=== PATIENT | female | born 1960 | race Hispanic/Latino ===

== ENCOUNTER 2019-07-21 10:50 | Day surgery (SDC) | payer OTHER ==
[~2019-07-21] VITALS: Ht 157.5 cm; Wt 80.7 kg
[2019-07-21 11:57] VITALS: BP 131/65
[2019-07-21] MEDS ORDERED: ISOS30TA6 PO (12:24)
[2019-07-21] MEDS ORDERED: OMEG-148 PO (12:24)
[2019-07-21] MEDS ORDERED: ASPI-555 PO (12:24)
[2019-07-21] MEDS ORDERED: ERGO500014 PO (12:24)
[2019-07-21] MEDS ORDERED: NITR0.4T50 SL (12:24)
[2019-07-21] MEDS ORDERED: ATOR-2 PO (12:24)
[2019-07-21] MEDS ORDERED: METO2.5T2 PO (12:24)
[2019-07-21] MEDS ORDERED: METO50TA18 PO (12:24)
[2019-07-21] MEDS ORDERED: AMLO10TA7 PO (12:24)
[2019-07-21] MEDS ORDERED: FURO20TA4 PO (12:24)
[2019-07-21] MEDS ORDERED: INSU100I35 SQ ×2 (12:24)
[2019-07-21] MEDS ORDERED: CLOP75TA32 PO (12:24)
[2019-07-21] MEDS ORDERED: SODIUM CHLORIDE 0.9% 1000ML 1,000 ML IV ONE (12:26)
[2019-07-21] MEDS ORDERED: PROPOFOL 10 MG/ML 20ML VIAL IV ONE ×2 (12:39)
[2019-07-21 12:42] VITALS: BP 110/51
[2019-07-21 12:47] VITALS: BP 126/68
[2019-07-21 12:52] VITALS: BP 132/76
[2019-07-21 12:57] VITALS: BP 133/73
[2019-07-21 13:02] VITALS: BP 137/72
--- NOTE | 2019-07-21 14:35 | NUR ---
PLAVIX PT/DAUGHTER INSTRUCTED TO RESUME PLAVIX IN 72 HOURS. VERBALIZED UNDERSTANDING.
== END 2019-07-21 13:17 | disposition home or self-care (01) ==
LOC: DAH 10:50
PROVIDERS: ATTEND Internal Medicine
DX: R19.5 Other fecal abnormalities (principal); K59.04 Chronic idiopathic constipation; D12.2 Benign neoplasm of ascending colon; D12.3 Benign neoplasm of transverse colon; K57.30 Diverticulosis of large intestine without perforation or abscess without bleeding; K64.0 First degree hemorrhoids; I10 Essential (primary) hypertension; E11.9 Type 2 diabetes mellitus without complications; I25.10 Atherosclerotic heart disease of native coronary artery without angina pectoris; Z88.1 Allergy status to other antibiotic agents; Z86.73 Personal history of transient ischemic attack (TIA), and cerebral infarction without residual deficits; Z98.890 Other specified postprocedural states; Z79.82 Long term (current) use of aspirin; Z86.010 Personal history of colon polyps; Z79.899 Other long term (current) drug therapy; Z79.4 Long term (current) use of insulin; Z82.49 Family history of ischemic heart disease and other diseases of the circulatory system; Z83.3 Family history of diabetes mellitus; Z82.3 Family history of stroke
CPT/HCPCS: 45380; 45385; 82948 ×2; 88305; A4215; A4221; A4222; A4223; A4606; A4615; A4663; J2704 ×2; J7030

== ENCOUNTER 2020-09-30 11:21 | Inpatient (IN) | payer OTHER ==
[~2020-09-30] VITALS: Ht 165.1 cm; Wt 75.5 kg
[~2020-09-30 11:21] MED LIST: AMLO-258 PO; ASPI-556 PO; ATOR-2 PO; CLOP75TA32 PO; ERGO500014 PO; FURO20TA4 PO; INSU100I35 SQ; ISOS30TA92 PO; METO2.5T2 PO; METO50TA18 PO; NITR0.4T50 SL; OMEG-148 PO
[2020-09-30] MEDS ORDERED: ACETAMINOPHEN 325 MG TAB PO PRN (11:45)
[2020-09-30] MEDS ORDERED: ONDANSETRON 4MG TABLET PO PRN (11:45)
[2020-09-30] MEDS: ZOSYN 3.375GM+NS 50ML 50 ML IV SCH ×2 (11:45→19:45)
[2020-09-30 11:58] LABS: BASOPHILS % (AUTO) 0.4 % (0.0-5.0); EOSINOPHILS % (AUTO) 2.4 % (0.0-8.0); HEMATOCRIT 33.3 % (36-48); LYMPHOCYTES % (AUTO) 17.1 % (21.0-51.0); MEAN CORPUSCULAR HEMOGLOBIN 29.6 pg (27.0-33.0); MEAN CORPUSCULAR HGB CONC 33.6 g/dL (32.0-36.0); MEAN CORPUSCULAR VOLUME 88.1 fL (79-99); MONOCYTES % (AUTO) 6.7 % (3.0-13.0); PLATELET COUNT (AUTO) 230 K/uL (130-400); RED BLOOD CELL COUNT(AUTO) 3.78 MIL/uL (4.00-5.50); RED CELL DISTRIBUTION WIDTH 13.8 % (11.0-15.5); WHITE BLOOD COUNT (AUTO) 8.3 K/uL (4.8-10.8)
[2020-09-30] MEDS: IPRATROPIUM/ALBUTEROL SULFATE 3 ML SOLUTION IH SCH ×2 (12:00→18:00)
[2020-09-30] MEDS ORDERED: IPRATROPIUM 0.5 MG/2.5 ML INH IH SCH (12:00)
[2020-09-30] MEDS ORDERED: GLUCAGON 1MG KIT 1 MG ML IM PRN (12:15)
[2020-09-30] MEDS ORDERED: DEXTROSE 50%-WATER 50 ML DISP.SYRIN IV PRN (12:15)
[2020-09-30 12:16] LABS: BILIRUBIN,TOTAL 0.5 mg/dL (0.2-1.0); POTASSIUM 4.3 mmol/L (3.5-5.1); TOTAL PROTEIN, SERUM 7.5 g/dL (6.0-8.3)
[2020-09-30 12:55] LABS: HEMOGLOBIN A1C 8.5 % (4.0-6.0)
[2020-09-30] MEDS ORDERED: ZOSYN 3.375GM+NS 50ML 50 ML IV ONE (13:33)
[2020-09-30] MEDS: CEFEPIME HCL 2 GM VIAL IVP SCH (14:15)
[2020-09-30] MEDS: DOXYCYCLINE 100MG+NS 250ML 250 ML IV SCH (14:15)
[2020-09-30 15:47] LABS: INR 1.07 (0.85-1.15); PROTHROMBIN TIME 11.4 SEC (9.6-11.6)
[2020-09-30] MEDS ORDERED: CEFEPIME HCL 2 GM VIAL ONE (16:23)
[2020-09-30] MEDS: INSULIN HUMULIN R 100 UNIT/ML 3ML SQ SCH ×2 (16:30→21:00)
[2020-09-30] MEDS ORDERED: DOXYCYCLINE 100MG+NS 250ML 250 ML IV ONE (17:05)
[2020-09-30] MEDS: BUDESONIDE 0.5 MG/2 ML INH IH SCH (18:00)
[2020-09-30] MEDS: ALBUTEROL INHALER 90MCG/INH IH SCH (18:00)
[2020-09-30] MEDS ORDERED: INSULIN HUMULIN R 100 UNIT/ML 3ML ONE (21:19)
[2020-10-01] MEDS: CEFEPIME HCL 2 GM VIAL IVP SCH ×2 (02:15→14:37)
[2020-10-01] MEDS: DOXYCYCLINE 100MG+NS 250ML 250 ML IV SCH ×2 (02:15→14:37)
[2020-10-01] MEDS: ZOSYN 3.375GM+NS 50ML 50 ML IV SCH ×2 (03:45→11:04)
[2020-10-01] MEDS ORDERED: CEFEPIME HCL 2 GM VIAL ONE (04:14)
[2020-10-01 04:45] LABS: BASOPHILS % (AUTO) 0.7 % (0.0-5.0); EOSINOPHILS % (AUTO) 2.4 % (0.0-8.0); HEMATOCRIT 33.9 % (36-48); LYMPHOCYTES % (AUTO) 15.5 % (21.0-51.0); MEAN CORPUSCULAR HEMOGLOBIN 29.6 pg (27.0-33.0); MEAN CORPUSCULAR VOLUME 89.4 fL (79-99); NEUTROPHILS % (AUTO) 73.2 % (40.0-77.0); PLATELET COUNT (AUTO) 197 K/uL (130-400); RED BLOOD CELL COUNT(AUTO) 3.79 MIL/uL (4.00-5.50); WHITE BLOOD COUNT (AUTO) 8.6 K/uL (4.8-10.8)
[2020-10-01] MEDS ORDERED: DOXYCYCLINE 100MG+NS 250ML 250 ML IV ONE (04:47)
[2020-10-01 04:57] LABS: CREATININE 3.4 mg/dL (0.5-1.5); MAGNESIUM 2.3 mg/dL (1.80-2.40); PHOSPHORUS 4.8 mg/dL (2.5-4.9); POTASSIUM 4.3 mmol/L (3.5-5.1); URIC ACID 12.1 mg/dL (2.6-7.2)
[2020-10-01 05:31] LABS: INR 1.09 (0.85-1.15); PROTHROMBIN TIME 11.6 SEC (9.6-11.6)
[2020-10-01 05:32] LABS: PARTIAL THROMBOPLASTIN TIME 23.1 SEC (26.3-35.5)
[2020-10-01] MEDS: BUDESONIDE 0.5 MG/2 ML INH IH SCH ×2 (06:00→18:00)
[2020-10-01] MEDS: ALBUTEROL INHALER 90MCG/INH IH SCH ×4 (06:00→17:22)
[2020-10-01] MEDS: IPRATROPIUM/ALBUTEROL SULFATE 3 ML SOLUTION IH SCH ×4 (06:00→18:00)
[2020-10-01] MEDS: INSULIN HUMULIN R 100 UNIT/ML 3ML SQ SCH ×4 (07:30→21:36)
[2020-10-01 08:45] VITALS: BP 109/55
[2020-10-01] MEDS: Vitamin B Complex/Vit C/Folic Acid PO SCH (10:18)
[2020-10-01] MEDS: PANTOPRAZOLE 40 MG TAB DR PO SCH (10:19)
[2020-10-01 11:52] VITALS: BP 105/58
[2020-10-01 16:18] VITALS: BP 117/71
[2020-10-01 16:59] LABS: TRIGLYCERIDES,BODY FLUID < 15 mg/dL
[2020-10-01 17:47] LABS: APPEARANCE BODY FLUID CLEAR (CLEAR); COLOR,BODY FLUID YELLOW (LT YELLOW); SPECIMENTYPE,BODY FLUID PLEURAL; TOTAL VOLUME,BODY FLUID 570 mL
[2020-10-01 17:48] LABS: BODY FLUID RBC 37 /cu. mm.; BODY FLUID WBC 20 /cu. mm.
[2020-10-01 18:03] LABS: BF EOSINOPHIL 1 %; BF LYMPHOCYTE 18 %; BF MESOTHELIAL 69 %; BF MONOCYTE 2 %
[2020-10-01 19:30] VITALS: BP 129/63
[2020-10-02] VITALS (7 sets, daily range): BP systolic 118–134; BP diastolic 67–75
[2020-10-02] MEDS: ALBUTEROL INHALER 90MCG/INH IH SCH ×4 (00:08→20:42)
[2020-10-02] MEDS: DOXYCYCLINE 100MG+NS 250ML 250 ML IV SCH ×2 (01:43→15:30)
[2020-10-02] MEDS: CEFEPIME HCL 2 GM VIAL IVP SCH ×2 (01:43→15:30)
[2020-10-02 05:33] LABS: BASOPHILS % (AUTO) 0.4 % (0.0-5.0); EOSINOPHILS % (AUTO) 1.6 % (0.0-8.0); HEMATOCRIT 36.9 % (36-48); LYMPHOCYTES % (AUTO) 10.5 % (21.0-51.0); MEAN CORPUSCULAR HEMOGLOBIN 28.9 pg (27.0-33.0); MEAN CORPUSCULAR VOLUME 90.4 fL (79-99); MONOCYTES % (AUTO) 5.5 % (3.0-13.0); NEUTROPHILS % (AUTO) 81.6 % (40.0-77.0); PLATELET COUNT (AUTO) 213 K/uL (130-400); RED BLOOD CELL COUNT(AUTO) 4.08 MIL/uL (4.00-5.50); RED CELL DISTRIBUTION WIDTH 13.8 % (11.0-15.5); WHITE BLOOD COUNT (AUTO) 11.4 K/uL (4.8-10.8)
[2020-10-02] MEDS: BUDESONIDE 0.5 MG/2 ML INH IH SCH ×2 (06:00→18:00)
[2020-10-02] MEDS: IPRATROPIUM/ALBUTEROL SULFATE 3 ML SOLUTION IH SCH ×4 (06:00→18:00)
[2020-10-02 06:02] LABS: ALBUMIN 2.9 g/dL (3.5-5.0); BILIRUBIN,TOTAL 0.5 mg/dL (0.2-1.0); CREATININE 3.4 mg/dL (0.5-1.5); MAGNESIUM 2.1 mg/dL (1.80-2.40); PHOSPHORUS 3.6 mg/dL (2.5-4.9); POTASSIUM 3.8 mmol/L (3.5-5.1); TOTAL PROTEIN, SERUM 7.4 g/dL (6.0-8.3)
[2020-10-02] MEDS: INSULIN HUMULIN R 100 UNIT/ML 3ML SQ SCH ×4 (06:42→20:36)
[2020-10-02] MEDS: Vitamin B Complex/Vit C/Folic Acid PO SCH (08:59)
[2020-10-02] MEDS: PANTOPRAZOLE 40 MG TAB DR PO SCH (08:59)
[2020-10-02 10:13] LABS: APPEARANCE,URINE Clear (CLEAR); BILIRUBIN,URINE Negative (NEGATIVE); COLOR,URINE Yellow (YELLOW); GLUCOSE, URINE (UA) TRACE mg/dL (NEGATIVE); KETONES,URINE Negative (NEGATIVE); LEUKOCYTE ESTERASE ,URINE Negative (NEGATIVE); NITRATE,URINE Negative (NEGATIVE); OCCULT BLOOD,URINE Trace (NEGATIVE); PH,URINE 5.5 (5.0-8.0); PROTEIN,URINE 300 mg/dL (NEGATIVE); UROBILINOGEN,URINE 0.2 mg/dL (0.2-1.0)
[2020-10-02 10:17] LABS: PROTEIN,URINE RANDOM 163.5 mg/dL (0-11.9)
[2020-10-02 10:21] LABS: BACTERIA,URINE None Seen /HPF (None Seen); HYALINE CASTS, URINE 0-1 /LPF (0-1 /LPF); MUCUS,URINE Rare LPF (None Seen); RBC,URINE 0-1 /HPF (0-1); WBC,URINE 0-1 /HPF (0-1)
[2020-10-03] MEDS: IPRATROPIUM/ALBUTEROL SULFATE 3 ML SOLUTION IH SCH
[2020-10-03] MEDS: CEFEPIME HCL 2 GM VIAL IVP SCH ×2 (02:24→14:50)
[2020-10-03] MEDS: DOXYCYCLINE 100MG+NS 250ML 250 ML IV SCH ×2 (02:35→14:50)
[2020-10-03 03:07] VITALS: BP 120/59
[2020-10-03 05:43] LABS: BASOPHILS % (AUTO) 0.4 % (0.0-5.0); EOSINOPHILS % (AUTO) 1.4 % (0.0-8.0); HEMATOCRIT 32.7 % (36-48); MEAN CORPUSCULAR HEMOGLOBIN 28.4 pg (27.0-33.0); MEAN CORPUSCULAR HGB CONC 31.5 g/dL (32.0-36.0); MEAN CORPUSCULAR VOLUME 90.1 fL (79-99); MONOCYTES % (AUTO) 7.7 % (3.0-13.0); PLATELET COUNT (AUTO) 176 K/uL (130-400); RED BLOOD CELL COUNT(AUTO) 3.63 MIL/uL (4.00-5.50); RED CELL DISTRIBUTION WIDTH 14.2 % (11.0-15.5); WHITE BLOOD COUNT (AUTO) 9.7 K/uL (4.8-10.8)
[2020-10-03] MEDS: INSULIN HUMULIN R 100 UNIT/ML 3ML SQ SCH ×4 (06:09→22:31)
[2020-10-03] MEDS: ALBUTEROL INHALER 90MCG/INH IH SCH ×5 (06:09→23:53)
[2020-10-03 06:12] LABS: CREATININE 3.6 mg/dL (0.5-1.5); POTASSIUM 3.8 mmol/L (3.5-5.1)
[2020-10-03 07:00] VITALS: BP 115/58
[2020-10-03] MEDS ORDERED: NITROGLYCERIN 0.4 MG SL TAB SL PRN (07:30)
[2020-10-03] MEDS ORDERED: FUROSEMIDE 20 MG TABLET PO SCH (09:00)
[2020-10-03 11:00] VITALS: BP 125/65
[2020-10-03] MEDS: Vitamin B Complex/Vit C/Folic Acid PO SCH (11:07)
[2020-10-03] MEDS: ALLOPURINOL 100 MG TABLET PO SCH (11:08)
[2020-10-03] MEDS: CLOPIDOGREL 75MG TAB PO SCH (11:08)
[2020-10-03] MEDS: METOLAZONE 2.5 MG TABLET PO SCH (11:08)
[2020-10-03] MEDS: METOPROLOL TARTRATE 50 MG TAB PO SCH ×2 (11:08→22:27)
[2020-10-03] MEDS: ASPIRIN 81 MG EC TAB PO SCH (11:08)
[2020-10-03] MEDS: PANTOPRAZOLE 40 MG TAB DR PO SCH (11:08)
[2020-10-03] MEDS: ISOSORBIDE MONO 30MG SR TAB PO SCH ×2 (11:09→22:28)
[2020-10-03] MEDS: AMLODIPINE 5 MG TAB PO SCH (11:09)
[2020-10-03 15:45] VITALS: BP 101/54
[2020-10-03] MEDS: BUDESONIDE 0.5 MG/2 ML INH IH SCH (18:00)
[2020-10-03 19:00] VITALS: BP 105/60
[2020-10-03] MEDS: ATORVASTATIN 40 MG TABLET PO SCH (22:28)
[2020-10-04 00:18] VITALS: BP 106/62
[2020-10-04] MEDS: CEFEPIME HCL 2 GM VIAL IVP SCH ×2 (02:29→13:47)
[2020-10-04] MEDS: DOXYCYCLINE 100MG+NS 250ML 250 ML IV SCH ×2 (02:29→14:49)
[2020-10-04 03:44] VITALS: BP 109/63
[2020-10-04 04:49] LABS: BASOPHILS % (AUTO) 0.5 % (0.0-5.0); EOSINOPHILS % (AUTO) 2.7 % (0.0-8.0); LYMPHOCYTES % (AUTO) 11.7 % (21.0-51.0); MEAN CORPUSCULAR HEMOGLOBIN 29.3 pg (27.0-33.0); MEAN CORPUSCULAR HGB CONC 32.9 g/dL (32.0-36.0); MEAN CORPUSCULAR VOLUME 89.2 fL (79-99); MONOCYTES % (AUTO) 8.6 % (3.0-13.0); PLATELET COUNT (AUTO) 148 K/uL (130-400); RED BLOOD CELL COUNT(AUTO) 3.14 MIL/uL (4.00-5.50); RED CELL DISTRIBUTION WIDTH 14.2 % (11.0-15.5); WHITE BLOOD COUNT (AUTO) 8.8 K/uL (4.8-10.8)
[2020-10-04 05:17] LABS: ALBUMIN 2.4 g/dL (3.5-5.0); BILIRUBIN,TOTAL 0.5 mg/dL (0.2-1.0); POTASSIUM 3.8 mmol/L (3.5-5.1); TOTAL PROTEIN, SERUM 6.5 g/dL (6.0-8.3)
[2020-10-04] MEDS: BUDESONIDE 0.5 MG/2 ML INH IH SCH (06:00)
[2020-10-04] MEDS: IPRATROPIUM/ALBUTEROL SULFATE 3 ML SOLUTION IH SCH ×2 (06:00)
[2020-10-04] MEDS: INSULIN HUMULIN R 100 UNIT/ML 3ML SQ SCH ×4 (06:00→21:00)
[2020-10-04] MEDS: ALBUTEROL INHALER 90MCG/INH IH SCH ×3 (06:19→12:00)
[2020-10-04 09:00] VITALS: BP 115/62
[2020-10-04] MEDS ORDERED: HEPARIN 1,000 UNIT VIAL ONE (11:19)
[2020-10-04] MEDS ORDERED: LIDOCAINE HCL 1% MDV 50ML VIAL ONE (11:19)
[2020-10-04] MEDS: ASPIRIN 81 MG EC TAB PO SCH (13:45)
[2020-10-04] MEDS: METOPROLOL TARTRATE 50 MG TAB PO SCH ×2 (13:45→21:36)
[2020-10-04] MEDS: METOLAZONE 2.5 MG TABLET PO SCH (13:45)
[2020-10-04] MEDS: PANTOPRAZOLE 40 MG TAB DR PO SCH (13:46)
[2020-10-04] MEDS: ALLOPURINOL 100 MG TABLET PO SCH (13:46)
[2020-10-04] MEDS: CLOPIDOGREL 75MG TAB PO SCH (13:46)
[2020-10-04] MEDS: Vitamin B Complex/Vit C/Folic Acid PO SCH (13:46)
[2020-10-04] MEDS: AMLODIPINE 5 MG TAB PO SCH (13:47)
[2020-10-04] MEDS: ISOSORBIDE MONO 30MG SR TAB PO SCH (13:47)
[2020-10-04] MEDS ORDERED: HEPARIN 5,000 UNIT VIAL ONE (17:12)
[2020-10-04 17:19] LABS: HEMATOCRIT 27.7 % (36-48)
[2020-10-04 17:29] LABS: HEMOGLOBIN A1C 8.8 % (4.0-6.0)
[2020-10-04 17:34] LABS: ALBUMIN 2.4 g/dL (3.5-5.0); CREATININE 3.4 mg/dL (0.5-1.5)
[2020-10-04 17:52] LABS: % IRON SATURATION 16.5 % (22-44)
[2020-10-04 18:39] VITALS: BP 100/57
[2020-10-04 20:12] VITALS: BP 108/56
[2020-10-04] MEDS: ATORVASTATIN 40 MG TABLET PO SCH (21:36)
[2020-10-05] VITALS (7 sets, daily range): BP systolic 95–135; BP diastolic 51–73
[2020-10-05] MEDS: ALBUTEROL INHALER 90MCG/INH IH SCH
[2020-10-05] MEDS: IPRATROPIUM/ALBUTEROL SULFATE 3 ML SOLUTION IH SCH ×4 (01:03→18:55)
[2020-10-05] MEDS: DOXYCYCLINE 100MG+NS 250ML 250 ML IV SCH ×2 (01:49→14:15)
[2020-10-05] MEDS: CEFEPIME HCL 2 GM VIAL IVP SCH ×2 (01:49→14:15)
[2020-10-05] MEDS: INSULIN HUMULIN R 100 UNIT/ML 3ML SQ SCH ×4 (05:40→20:19)
[2020-10-05 06:11] LABS: BASOPHILS % (AUTO) 0.5 % (0.0-5.0); EOSINOPHILS % (AUTO) 2.5 % (0.0-8.0); HEMATOCRIT 30.9 % (36-48); LYMPHOCYTES % (AUTO) 10.4 % (21.0-51.0); MEAN CORPUSCULAR HEMOGLOBIN 28.4 pg (27.0-33.0); MEAN CORPUSCULAR VOLUME 88.5 fL (79-99); MONOCYTES % (AUTO) 9.4 % (3.0-13.0); NEUTROPHILS % (AUTO) 76.9 % (40.0-77.0); PLATELET COUNT (AUTO) 124 K/uL (130-400); RED BLOOD CELL COUNT(AUTO) 3.49 MIL/uL (4.00-5.50); RED CELL DISTRIBUTION WIDTH 14.2 % (11.0-15.5); WHITE BLOOD COUNT (AUTO) 8.7 K/uL (4.8-10.8)
[2020-10-05 06:32] LABS: CREATININE 3.4 mg/dL (0.5-1.5); POTASSIUM 3.3 mmol/L (3.5-5.1)
[2020-10-05] MEDS: BUDESONIDE 0.5 MG/2 ML INH IH SCH ×2 (06:50→18:55)
[2020-10-05] MEDS: PANTOPRAZOLE 40 MG TAB DR PO SCH (09:55)
[2020-10-05] MEDS: ASPIRIN 81 MG EC TAB PO SCH (09:55)
[2020-10-05] MEDS: CLOPIDOGREL 75MG TAB PO SCH (09:55)
[2020-10-05] MEDS: ALLOPURINOL 100 MG TABLET PO SCH (09:56)
[2020-10-05] MEDS: Vitamin B Complex/Vit C/Folic Acid PO SCH (09:56)
[2020-10-05] MEDS ORDERED: DEXTROSE 50%-WATER 50 ML DISP.SYRIN IV SCH (12:15)
[2020-10-05] MEDS ORDERED: HEPARIN 5,000 UNIT VIAL ONE (16:01)
[2020-10-05] MEDS: ATORVASTATIN 40 MG TABLET PO SCH (20:19)
[2020-10-06] VITALS (24 sets, daily range): BP systolic 102–131; BP diastolic 49–79
[2020-10-06] MEDS: IPRATROPIUM/ALBUTEROL SULFATE 3 ML SOLUTION IH SCH ×4 (00:33→18:27)
[2020-10-06] MEDS: CEFEPIME HCL 2 GM VIAL IVP SCH ×2 (02:33→12:56)
[2020-10-06] MEDS: DOXYCYCLINE 100MG+NS 250ML 250 ML IV SCH ×2 (02:33→12:56)
[2020-10-06 05:33] LABS: HEMATOCRIT 29.3 % (36-48); MEAN CORPUSCULAR HGB CONC 32.8 g/dL (32.0-36.0); MEAN CORPUSCULAR VOLUME 88.5 fL (79-99); RED BLOOD CELL COUNT(AUTO) 3.31 MIL/uL (4.00-5.50); RED CELL DISTRIBUTION WIDTH 14.1 % (11.0-15.5)
[2020-10-06 05:48] LABS: INR 1.23 (0.85-1.15); PROTHROMBIN TIME 12.9 SEC (9.6-11.6)
[2020-10-06 05:49] LABS: PARTIAL THROMBOPLASTIN TIME 26.9 SEC (26.3-35.5)
[2020-10-06 05:51] LABS: CREATININE 2.9 mg/dL (0.5-1.5); POTASSIUM 3.4 mmol/L (3.5-5.1)
[2020-10-06] MEDS: INSULIN HUMULIN R 100 UNIT/ML 3ML SQ SCH ×4 (06:31→21:00)
[2020-10-06] MEDS: BUDESONIDE 0.5 MG/2 ML INH IH SCH ×2 (06:36→18:27)
[2020-10-06 09:14] LABS: HEPATITIS Bs ANTIGEN SCREEN P Negative (Negative)
[2020-10-06] MEDS ORDERED: ONDANSETRON 4MG INJ ONE (09:27)
[2020-10-06] MEDS ORDERED: LIDOCAINE PF 100MG/5ML (2%) SYRINGE 5ML ONE (09:27)
[2020-10-06] MEDS ORDERED: PROPOFOL 10 MG/ML 20ML VIAL IV ONE (09:27)
[2020-10-06] MEDS ORDERED: GLYCOPYRROLATE 1 MG/5 ML SYRINGE ONE (09:27)
[2020-10-06] MEDS ORDERED: NEOSTIGMINE 5MG/5ML SYR IV ONE (09:27)
[2020-10-06] MEDS ORDERED: DEXAMETHASONE SOD PHOSPHATE 10MG/ML 1ML VIAL ONE (09:27)
[2020-10-06] MEDS ORDERED: SUCCINYLCHOLINE CHLORIDE 20 MG/ML 10 ML VIAL ONE (09:27)
[2020-10-06] MEDS ORDERED: MIDAZOLAM HCL 1 MG/ML 2ML VIAL ONE (09:27)
[2020-10-06] MEDS ORDERED: FENTANYL CITRATE PF 50 MCG/1 ML 2ML VIAL ONE (09:28)
[2020-10-06] MEDS ORDERED: ROCURONIUM 10MG/1ML SYR 10 MG/ML ML ONE (09:28)
[2020-10-06] MEDS ORDERED: CEFAZOLIN SODIUM 1 GM VIAL ONE ×3 (09:55→10:25)
[2020-10-06] MEDS ORDERED: PHENYLEPHRINE HCL 10 MG/ML 1ML VIAL IV ONE (10:18)
[2020-10-06] MEDS ORDERED: 0.9%NACL 1000ML 1,000 ML IV ONE (10:20)
[2020-10-06] MEDS ORDERED: ALBUMIN (HUMAN) 25% 50 ML IV ONE ×2 (10:29→10:30)
[2020-10-06] MEDS ORDERED: PROTAMINE SULFATE 10 MG/ML 5 ML VIAL ONE (10:51)
[2020-10-06] MEDS ORDERED: EPHEDRINE SULFATE 50 MG/ML AMPULE ONE (11:09)
[2020-10-06] MEDS: ALBUTEROL INHALER 90MCG/INH IH SCH ×2 (12:00→17:29)
[2020-10-06] MEDS: ASPIRIN 81 MG EC TAB PO SCH (12:36)
[2020-10-06] MEDS: CLOPIDOGREL 75MG TAB PO SCH (12:36)
[2020-10-06] MEDS: PANTOPRAZOLE 40 MG TAB DR PO SCH (12:38)
[2020-10-06] MEDS: Vitamin B Complex/Vit C/Folic Acid PO SCH (12:38)
[2020-10-06] MEDS: ALLOPURINOL 100 MG TABLET PO SCH (12:38)
[2020-10-06] MEDS: ATORVASTATIN 40 MG TABLET PO SCH (21:37)
[2020-10-07] MEDS: IPRATROPIUM/ALBUTEROL SULFATE 3 ML SOLUTION IH SCH ×3 (00:07→11:28)
[2020-10-07] MEDS: CEFEPIME HCL 2 GM VIAL IVP SCH ×2 (02:29→15:27)
[2020-10-07] MEDS: DOXYCYCLINE 100MG+NS 250ML 250 ML IV SCH ×2 (02:29→15:27)
[2020-10-07 03:46] VITALS: BP 109/55
[2020-10-07 05:32] LABS: HEMATOCRIT 29.6 % (36-48); MEAN CORPUSCULAR HGB CONC 31.8 g/dL (32.0-36.0); MEAN CORPUSCULAR VOLUME 91.4 fL (79-99); RED BLOOD CELL COUNT(AUTO) 3.24 MIL/uL (4.00-5.50); RED CELL DISTRIBUTION WIDTH 14.5 % (11.0-15.5)
[2020-10-07] MEDS: ALBUTEROL INHALER 90MCG/INH IH SCH ×2 (06:00)
[2020-10-07 06:12] LABS: CREATININE 3.7 mg/dL (0.5-1.5); POTASSIUM 3.3 mmol/L (3.5-5.1)
[2020-10-07 06:13] LABS: HEPATITIS A ANTIBODY IGM Negative (Negative); HEPATITIS B CORE IGM Negative (Negative); HEPATITIS Bs ANTIGEN SCREEN P Negative (Negative)
[2020-10-07 07:30] VITALS: BP 125/54
[2020-10-07] MEDS: INSULIN HUMULIN R 100 UNIT/ML 3ML SQ SCH ×3 (07:30→16:30)
[2020-10-07] MEDS: BUDESONIDE 0.5 MG/2 ML INH IH SCH (07:52)
[2020-10-07] MEDS: ASPIRIN 81 MG EC TAB PO SCH (08:39)
[2020-10-07] MEDS: PANTOPRAZOLE 40 MG TAB DR PO SCH (08:39)
[2020-10-07] MEDS: Vitamin B Complex/Vit C/Folic Acid PO SCH (08:40)
[2020-10-07] MEDS: ALLOPURINOL 100 MG TABLET PO SCH (08:40)
[2020-10-07] MEDS: CLOPIDOGREL 75MG TAB PO SCH (08:40)
[2020-10-07 11:00] VITALS: BP 136/57
[2020-10-07] MEDS ORDERED: HEPARIN 5,000 UNIT VIAL IJ PRN ×2 (11:30)
[2020-10-07] MEDS ORDERED: 0.9%NACL 1000ML 1,000 ML IV PRN (11:30)
[2020-10-07] MEDS ORDERED: LIDOCAINE HCL-MPF 1% 2ML VIAL IJ PRN (11:30)
[2020-10-07] MEDS ORDERED: PHARMACY COMMUNICATION MISC PRN (11:30)
[2020-10-07] MEDS ORDERED: NITROGLYCERIN 0.4 MG SL TAB SL PRN (11:30)
[2020-10-07] MEDS ORDERED: ACETAMINOPHEN 325 MG TAB PO PRN (11:30)
[2020-10-07] MEDS ORDERED: 0.9%NACL 1000ML IV PRN (11:30)
[2020-10-07 16:00] VITALS: BP 105/65
== END 2020-10-07 18:45 | disposition home or self-care (01) | DRG 264 ==
LOC: EDH 11:21 → EDHIP 11:22 → 2AH 10-01 09:35 → 3CH 10-02 16:26
PROVIDERS: ADMIT Internal Medicine Critical Care Medicine; ATTEND Internal Medicine Critical Care Medicine
PROC: 0W993ZZ Drainage of Right Pleural Cavity, Percutaneous Approach (ICD-10-PCS; 2020-10-01)
PROC: 5A1D70Z Performance of Urinary Filtration, Intermittent, Less than 6 Hours Per Day (ICD-10-PCS; 2020-10-04)
PROC: 0JH63XZ Insertion of Tunneled Vascular Access Device into Chest Subcutaneous Tissue and Fascia, Percutaneous Approach (ICD-10-PCS; 2020-10-04)
PROC: 02HV33Z Insertion of Infusion Device into Superior Vena Cava, Percutaneous Approach (ICD-10-PCS; 2020-10-04)
PROC: B5181ZA Fluoroscopy of Superior Vena Cava using Low Osmolar Contrast, Guidance (ICD-10-PCS; 2020-10-04)
PROC: B548ZZA Ultrasonography of Superior Vena Cava, Guidance (ICD-10-PCS; 2020-10-04)
PROC: 5A1D70Z Performance of Urinary Filtration, Intermittent, Less than 6 Hours Per Day (ICD-10-PCS; 2020-10-05)
PROC: 031C0ZF Bypass Left Radial Artery to Lower Arm Vein, Open Approach (ICD-10-PCS; principal; 2020-10-06 10:28)
PROC: 5A1D70Z Performance of Urinary Filtration, Intermittent, Less than 6 Hours Per Day (ICD-10-PCS; 2020-10-07)
DX: I13.2 Hypertensive heart and chronic kidney disease with heart failure and with stage 5 chronic kidney disease, or end stage renal disease (principal); N18.6 End stage renal disease; E87.1 Hypo-osmolality and hyponatremia; I69.351 Hemiplegia and hemiparesis following cerebral infarction affecting right dominant side; J91.8 Pleural effusion in other conditions classified elsewhere; N17.9 Acute kidney failure, unspecified; E04.1 Nontoxic single thyroid nodule; K80.20 Calculus of gallbladder without cholecystitis without obstruction; I25.10 Atherosclerotic heart disease of native coronary artery without angina pectoris; E78.5 Hyperlipidemia, unspecified; I25.5 Ischemic cardiomyopathy; I50.9 Heart failure, unspecified; E11.21 Type 2 diabetes mellitus with diabetic nephropathy; E66.9 Obesity, unspecified; E11.51 Type 2 diabetes mellitus with diabetic peripheral angiopathy without gangrene; E11.22 Type 2 diabetes mellitus with diabetic chronic kidney disease; D64.9 Anemia, unspecified; Z20.822 Contact with and (suspected) exposure to COVID-19; Z99.2 Dependence on renal dialysis; Z87.01 Personal history of pneumonia (recurrent); Z88.1 Allergy status to other antibiotic agents; Z95.1 Presence of aortocoronary bypass graft; Z68.27 Body mass index [BMI] 27.0-27.9, adult
CPT/HCPCS: 36415; 36558; 71045; 71250; 76700; 77001; 80048; 80053; 80061; 80074; 81001; 82040; 82565; 82570; 82728; 82945; 82948; 83036; 83540; 83550; 83615; 83735; 83880; 83986; 84100; 84156; 84157; 84478; 84520; 84550; 85014; 85018; 85025; 85027; 85610; 85730; 86701; 86704; 86706; 86850; 86900; 86901; 87040; 87071; 87088; 87116; 87205; 87206; 87340; 87390; 87426; 87520; 89051; 90935; 93005; 93306; 93356; 93971; 94640; 94664; C1750; G0378; J0330; J0690; J0692; J1100; J1644; J1815; J2001; J2250; J2370; J2405; J2543; J2704; J2710; J2720; J3010; J3490; J7030; J7070; P9047; U0003

== ENCOUNTER 2020-10-21 12:22 | Inpatient (IN) | payer OTHER ==
[~2020-10-21] VITALS: Ht 165.1 cm; Wt 81.7 kg
[2020-10-21 12:46] LABS: ABG BASE EXCESS 1.9 mmol/L (-2.0-3.0); ABG HCO3 25.8 mmol/L (21.0-28.0); ABG OXYGEN SATURATION 65.6 % (95.0-99.0); ABG PCO2 38 mmHg (32-45)
[2020-10-21 13:40] LABS: BASOPHILS % (AUTO) 0.1 % (0.0-5.0); EOSINOPHILS % (AUTO) 0.1 % (0.0-8.0); HEMATOCRIT 32.2 % (36-48); MEAN CORPUSCULAR HEMOGLOBIN 29.1 pg (27.0-33.0); MEAN CORPUSCULAR HGB CONC 31.7 g/dL (32.0-36.0); MEAN CORPUSCULAR VOLUME 91.7 fL (79-99); MONOCYTES % (AUTO) 3.3 % (3.0-13.0); NEUTROPHILS % (AUTO) 90.5 % (40.0-77.0); PLATELET COUNT (AUTO) 130 K/uL (130-400); RED BLOOD CELL COUNT(AUTO) 3.51 MIL/uL (4.00-5.50); RED CELL DISTRIBUTION WIDTH 15.7 % (11.0-15.5); WHITE BLOOD COUNT (AUTO) 9.5 K/uL (4.8-10.8)
[2020-10-21] MEDS ORDERED: ALBUTEROL INHALER 90MCG/INH IH ONE (13:45)
[2020-10-21] MEDS ORDERED: DEXAMETHASONE SOD PHOSPHATE 10MG/ML 1ML VIAL ONE (13:46)
[2020-10-21] MEDS ORDERED: CEFTRIAXONE 1G VIAL ONE (13:46)
[2020-10-21] MEDS ORDERED: AZITHROMYCIN 500MG+NS 250ML 250 ML IV ONE (13:46)
[2020-10-21] MEDS ORDERED: ACETAMINOPHEN 325 MG TAB ONE (13:46)
[2020-10-21 13:55] LABS: ALBUMIN 2.4 g/dL (3.5-5.0); BILIRUBIN,TOTAL 0.5 mg/dL (0.2-1.0); CREATININE 3.9 mg/dL (0.5-1.5)
[2020-10-21 14:00] LABS: POTASSIUM 2.9 mmol/L (3.5-5.1)
[2020-10-21 14:03] LABS: INR 1.13 (0.85-1.15); PROTHROMBIN TIME 12.2 SEC (9.6-11.6)
[2020-10-21 14:04] LABS: PARTIAL THROMBOPLASTIN TIME 26.3 SEC (26.3-35.5)
[2020-10-21 14:20] LABS: B-TYPE NATRIURETIC PEPTIDE > 5000 pg/mL (0-100)
[2020-10-21] MEDS ORDERED: MORPHINE 2 MG SYG IVP PRN (15:45)
[2020-10-21] MEDS ORDERED: ALBUTEROL INHALER 90MCG/INH IH PRN (15:45)
[2020-10-21] MEDS ORDERED: ACETAMINOPHEN 325 MG TAB PO PRN (15:45)
[2020-10-21] MEDS ORDERED: ACETAMINOPHEN 650 MG SUPPOSITORY RC PRN (15:45)
[2020-10-21] MEDS ORDERED: ZOSYN 3.375GM +NS 50ML IV SCH (15:45)
[2020-10-21] MEDS ORDERED: LABETALOL 20MG SYG IV PRN (15:45)
[2020-10-21] MEDS ORDERED: CLONIDINE HCL 0.1 MG TABLET PO PRN (15:45)
[2020-10-21] MEDS ORDERED: HYDROCODONE/ACETAMINOPHEN 5/325 MG TAB PO PRN (15:45)
[2020-10-21] MEDS ORDERED: ONDANSETRON 4MG INJ IVP PRN (15:45)
[2020-10-21] MEDS ORDERED: SOLU-MEDROL 125MG VIAL IVP ONE (15:45)
[2020-10-21] MEDS: ZOSYN 3.375GM+NS 50ML 50 ML IV SCH (16:00)
[2020-10-21] MEDS ORDERED: SOLU-MEDROL 125MG VIAL ONE (17:53)
[2020-10-21] MEDS ORDERED: ZOSYN 3.375GM+NS 50ML 50 ML IV ONE (17:53)
[2020-10-21 18:09] LABS: TROPONIN I 2.05 ng/mL (0.00-0.06)
[2020-10-21] MEDS ORDERED: NITROGLYCERIN 0.4 MG SL TAB SL PRN (18:15)
[2020-10-21] MEDS: ATORVASTATIN 40 MG TABLET PO SCH (21:00)
[2020-10-21] MEDS ORDERED: FUROSEMIDE 20 MG TABLET PO SCH (21:00)
[2020-10-21] MEDS ORDERED: ISOSORBIDE MONO 30MG SR TAB PO SCH (21:00)
[2020-10-21] MEDS ORDERED: NON-FORMULARY MEDICATION 1 EACH (Atorvastatin Calcium 80 MG) PO SCH (21:00)
[2020-10-21] MEDS: METOPROLOL TARTRATE 50 MG TAB PO SCH (21:00)
[2020-10-21] MEDS ORDERED: FUROSEMIDE 20 MG TABLET ONE (21:35)
[2020-10-21] MEDS ORDERED: KCL 20 MEQ ERTAB PO ONE (21:36)
[2020-10-21] MEDS ORDERED: FUROSEMIDE 40 MG TABLET ONE (21:36)
[2020-10-21] MEDS ORDERED: ISOSORBIDE MONO 30MG SR TAB PO ONE (21:37)
[2020-10-21] MEDS ORDERED: METOPROLOL TARTRATE 50 MG TAB ONE (21:37)
[2020-10-21] MEDS ORDERED: ATORVASTATIN 40 MG TABLET ONE (21:37)
[2020-10-21 22:31] LABS: TROPONIN I 1.84 ng/mL (0.00-0.06)
[2020-10-22] MEDS: ZOSYN 3.375GM+NS 50ML 50 ML IV SCH ×2 (04:00→16:00)
[2020-10-22] MEDS ORDERED: ZOSYN 3.375GM+NS 50ML 50 ML IV ONE ×2 (06:30→17:57)
[2020-10-22 06:58] LABS: MEAN CORPUSCULAR HEMOGLOBIN 28.7 pg (27.0-33.0); MEAN CORPUSCULAR HGB CONC 32.3 g/dL (32.0-36.0); MEAN CORPUSCULAR VOLUME 88.8 fL (79-99); RED BLOOD CELL COUNT(AUTO) 3.49 MIL/uL (4.00-5.50); RED CELL DISTRIBUTION WIDTH 15.6 % (11.0-15.5); WHITE BLOOD COUNT (AUTO) 9.4 K/uL (4.8-10.8)
[2020-10-22 07:31] LABS: ABG BASE EXCESS -1.8 mmol/L (-2.0-3.0); ABG HCO3 23.6 mmol/L (21.0-28.0); ABG OXYGEN SATURATION 98.1 % (95.0-99.0); ABG PCO2 43 mmHg (32-45)
[2020-10-22 07:53] LABS: CREATININE 4.7 mg/dL (0.5-1.5); POTASSIUM 3.9 mmol/L (3.5-5.1); THYROID STIMULATING HORMONE 0.45 uIU/mL (0.36-3.74)
[2020-10-22 07:56] LABS: TROPONIN I 1.6 ng/mL (0.00-0.06)
[2020-10-22] MEDS ORDERED: FUROSEMIDE 20 MG TABLET ONE (08:17)
[2020-10-22] MEDS ORDERED: FUROSEMIDE 40 MG TABLET ONE (08:17)
[2020-10-22] MEDS ORDERED: ASPIRIN 81MG CHEW TAB ONE (08:17)
[2020-10-22] MEDS ORDERED: METOPROLOL TARTRATE 50 MG TAB ONE (08:18)
[2020-10-22] MEDS ORDERED: ISOSORBIDE MONO 30MG SR TAB PO ONE (08:18)
[2020-10-22] MEDS ORDERED: AMLODIPINE 5 MG TAB ONE (08:18)
[2020-10-22] MEDS ORDERED: ENOXAPARIN SODIUM 30 MG/0.3 ML SQ ONE (08:18)
[2020-10-22] MEDS ORDERED: INSULIN NPH 100 UNIT/ML 3ML SQ ONE (08:19)
[2020-10-22] MEDS ORDERED: PANTOPRAZOLE 40 MG TAB DR ONE (08:19)
[2020-10-22] MEDS ORDERED: REG INSULIN SQ SCH (09:00)
[2020-10-22] MEDS: ASPIRIN 81MG CHEW TAB PO SCH (09:00)
[2020-10-22] MEDS ORDERED: [UNRECOGNIZED DRUG - OTHER] SQ SCH (09:00)
[2020-10-22] MEDS ORDERED: INSULIN NPH HUM SQ SCH (09:00)
[2020-10-22] MEDS: METOPROLOL TARTRATE 50 MG TAB PO SCH ×2 (09:00→21:00)
[2020-10-22] MEDS ORDERED: NON-FORMULARY MEDICATION 1 EACH (Amlodipine Besylate 10 MG) PO SCH (09:00)
[2020-10-22] MEDS ORDERED: ENOXAPARIN SODIUM 30 MG/0.3 ML SQ SCH (09:00)
[2020-10-22] MEDS ORDERED: AMLODIPINE 5 MG TAB PO SCH (09:00)
[2020-10-22] MEDS: PANTOPRAZOLE 40 MG TAB DR PO SCH (09:00)
[2020-10-22] MEDS: INSULIN NPH 100 UNIT/ML 3ML SQ SCH (09:00)
[2020-10-22] MEDS: HEPARIN 5,000 UNIT VIAL SQ SCH (15:00)
[2020-10-22] MEDS ORDERED: HEPARIN 5,000 UNIT VIAL ONE (16:36)
[2020-10-22] MEDS: ATORVASTATIN 40 MG TABLET PO SCH (21:00)
[2020-10-22] MEDS: MIDODRINE HCL 5 MG TABLET PO SCH (21:00)
[2020-10-22] MEDS ORDERED: ATORVASTATIN 40 MG TABLET ONE ×2 (22:11→22:13)
[2020-10-22] MEDS ORDERED: MIDODRINE HCL 5 MG TABLET ONE (22:11)
[2020-10-23] MEDS: HEPARIN 5,000 UNIT VIAL SQ SCH ×2 (03:00→15:00)
[2020-10-23] MEDS: ZOSYN 3.375GM+NS 50ML 50 ML IV SCH ×2 (04:00→16:00)
[2020-10-23 04:42] LABS: CREATININE 2.8 mg/dL (0.5-1.5); PHOSPHORUS 2.1 mg/dL (2.5-4.9); POTASSIUM 4.6 mmol/L (3.5-5.1)
[2020-10-23] MEDS ORDERED: PANTOPRAZOLE 40 MG TAB DR ONE (07:42)
[2020-10-23] MEDS ORDERED: ASPIRIN 81MG CHEW TAB ONE (07:42)
[2020-10-23] MEDS ORDERED: MIDODRINE HCL 5 MG TABLET ONE ×2 (07:42→09:29)
[2020-10-23] MEDS ORDERED: INSULIN NPH 100 UNIT/ML 3ML SQ ONE (07:43)
[2020-10-23 08:01] LABS: HEMATOCRIT 32.2 % (36-48); MEAN CORPUSCULAR HEMOGLOBIN 28.9 pg (27.0-33.0); MEAN CORPUSCULAR VOLUME 90.4 fL (79-99); PLATELET COUNT (AUTO) 130 K/uL (130-400); RED BLOOD CELL COUNT(AUTO) 3.56 MIL/uL (4.00-5.50); RED CELL DISTRIBUTION WIDTH 15.9 % (11.0-15.5); WHITE BLOOD COUNT (AUTO) 17.5 K/uL (4.8-10.8)
[2020-10-23] MEDS: PANTOPRAZOLE 40 MG TAB DR PO SCH (09:00)
[2020-10-23] MEDS: INSULIN NPH 100 UNIT/ML 3ML SQ SCH (09:00)
[2020-10-23] MEDS: METOPROLOL TARTRATE 50 MG TAB PO SCH ×2 (09:00→21:00)
[2020-10-23] MEDS: MIDODRINE HCL 5 MG TABLET PO SCH ×3 (09:00→21:00)
[2020-10-23] MEDS: ASPIRIN 81MG CHEW TAB PO SCH (09:00)
[2020-10-23 09:06] LABS: BAND NEUTROPHILS % (MANUAL) 3 % (0-2); LYMPHOCYTES % (MANUAL) 1 % (22-44); MAN.DIFF COMMENT-IMPRESSION MANUAL DIFFERENTIAL; MONOCYTES % (MANUAL) 2 % (2-9); SEGMENTED NEUTROPHILS % 94 % (40-70)
[2020-10-23 09:07] LABS: PLATELET MORPHOLOGY COMMENT DECREASED
[2020-10-23] MEDS: SOLU-MEDROL 125MG VIAL IVP SCH ×2 (14:45→20:45)
[2020-10-23] MEDS ORDERED: ZOSYN 3.375GM+NS 50ML 50 ML IV ONE (14:52)
[2020-10-23] MEDS ORDERED: HEPARIN 5,000 UNIT VIAL ONE (14:52)
[2020-10-23] MEDS ORDERED: SOLU-MEDROL 125MG VIAL ONE (14:52)
[2020-10-23] MEDS ORDERED: DEXTROSE 50%-WATER 50 ML DISP.SYRIN IV PRN (16:15)
[2020-10-23] MEDS ORDERED: GLUCAGON 1MG KIT 1 MG ML IM PRN (16:15)
[2020-10-23] MEDS: INSULIN HUMULIN R 100 UNIT/ML 3ML SQ SCH ×2 (16:30→21:00)
[2020-10-23] MEDS ORDERED: INSULIN HUMULIN R 100 UNIT/ML 3ML ONE (17:22)
[2020-10-23] MEDS: ATORVASTATIN 40 MG TABLET PO SCH (21:00)
[2020-10-23 22:58] VITALS: BP 106/55
[2020-10-24] MEDS: SOLU-MEDROL 125MG VIAL IVP SCH ×4 (03:38→22:37)
[2020-10-24] MEDS: ZOSYN 3.375GM+NS 50ML 50 ML IV SCH ×2 (03:39→15:08)
[2020-10-24] MEDS: HEPARIN 5,000 UNIT VIAL SQ SCH ×2 (03:41→15:04)
[2020-10-24 04:27] VITALS: BP_SYST 123; BP_SYST 139; BP_DIAS 64
[2020-10-24 04:46] LABS: HEMATOCRIT 31.8 % (36-48); MEAN CORPUSCULAR HEMOGLOBIN 28.5 pg (27.0-33.0); MEAN CORPUSCULAR HGB CONC 31.8 g/dL (32.0-36.0); MEAN CORPUSCULAR VOLUME 89.8 fL (79-99); RED BLOOD CELL COUNT(AUTO) 3.54 MIL/uL (4.00-5.50); RED CELL DISTRIBUTION WIDTH 15.9 % (11.0-15.5); WHITE BLOOD COUNT (AUTO) 16.4 K/uL (4.8-10.8)
[2020-10-24] MEDS: INSULIN HUMULIN R 100 UNIT/ML 3ML SQ SCH ×4 (07:30→21:00)
[2020-10-24 07:57] VITALS: BP 119/62
[2020-10-24] MEDS: MIDODRINE HCL 5 MG TABLET PO SCH ×3 (10:15→22:37)
[2020-10-24] MEDS: ASPIRIN 81MG CHEW TAB PO SCH (10:15)
[2020-10-24] MEDS: PANTOPRAZOLE 40 MG TAB DR PO SCH (10:16)
[2020-10-24] MEDS: METOPROLOL TARTRATE 50 MG TAB PO SCH (10:16)
[2020-10-24] MEDS: INSULIN NPH 100 UNIT/ML 3ML SQ SCH (10:22)
[2020-10-24 11:39] VITALS: BP 100/48
[2020-10-24 15:52] VITALS: BP 120/61
[2020-10-24 20:04] VITALS: BP 101/72
[2020-10-24] MEDS: ATORVASTATIN 40 MG TABLET PO SCH (22:37)
[2020-10-25] VITALS: BP 111/58
[2020-10-25] MEDS: ZOSYN 3.375GM+NS 50ML 50 ML IV SCH ×2 (03:45→17:55)
[2020-10-25] MEDS: SOLU-MEDROL 125MG VIAL IVP SCH ×3 (03:45→17:55)
[2020-10-25] MEDS: HEPARIN 5,000 UNIT VIAL SQ SCH ×2 (03:51→17:55)
[2020-10-25 04:05] VITALS: BP 97/62
[2020-10-25 05:46] LABS: BASOPHILS % (AUTO) 0.1 % (0.0-5.0); HEMATOCRIT 28.9 % (36-48); LYMPHOCYTES % (AUTO) 5.4 % (21.0-51.0); MEAN CORPUSCULAR HEMOGLOBIN 28.5 pg (27.0-33.0); MEAN CORPUSCULAR HGB CONC 31.5 g/dL (32.0-36.0); MEAN CORPUSCULAR VOLUME 90.6 fL (79-99); MONOCYTES % (AUTO) 2.3 % (3.0-13.0); NEUTROPHILS % (AUTO) 91.4 % (40.0-77.0); PLATELET COUNT (AUTO) 117 K/uL (130-400); RED BLOOD CELL COUNT(AUTO) 3.19 MIL/uL (4.00-5.50); RED CELL DISTRIBUTION WIDTH 15.8 % (11.0-15.5); WHITE BLOOD COUNT (AUTO) 17.6 K/uL (4.8-10.8)
[2020-10-25 06:08] LABS: B-TYPE NATRIURETIC PEPTIDE 4930 pg/mL (0-100)
[2020-10-25 06:14] LABS: ALBUMIN 1.8 g/dL (3.5-5.0); BILIRUBIN,TOTAL 0.4 mg/dL (0.2-1.0); CREATININE 5.3 mg/dL (0.5-1.5); POTASSIUM 3.4 mmol/L (3.5-5.1); TOTAL PROTEIN, SERUM 5.6 g/dL (6.0-8.3)
[2020-10-25] MEDS: INSULIN HUMULIN R 100 UNIT/ML 3ML SQ SCH ×4 (07:30→20:42)
[2020-10-25 07:31] VITALS: BP 102/51
[2020-10-25] MEDS: MIDODRINE HCL 5 MG TABLET PO SCH ×3 (08:41→22:08)
[2020-10-25] MEDS: ASPIRIN 81MG CHEW TAB PO SCH (08:41)
[2020-10-25] MEDS: PANTOPRAZOLE 40 MG TAB DR PO SCH (08:41)
[2020-10-25] MEDS: INSULIN NPH 100 UNIT/ML 3ML SQ SCH (08:42)
[2020-10-25 11:47] VITALS: BP 121/60
[2020-10-25] MEDS ORDERED: ALBUMIN (HUMAN) 25% 200 ML IV ONE (15:19)
[2020-10-25 15:25] VITALS: BP 93/34
[2020-10-25] MEDS ORDERED: ALBUMIN (HUMAN) 25% 100 ML IV SCH (15:30)
[2020-10-25 20:16] VITALS: BP_SYST 112; BP_SYST 126; BP_DIAS 61; BP_DIAS 75
[2020-10-25] MEDS: ATORVASTATIN 40 MG TABLET PO SCH (22:08)
[2020-10-26] VITALS (7 sets, daily range): BP systolic 104–156; BP diastolic 54–69
[2020-10-26] MEDS: SOLU-MEDROL 125MG VIAL IVP SCH ×4 (04:16→17:31)
[2020-10-26] MEDS: HEPARIN 5,000 UNIT VIAL SQ SCH ×2 (04:17→15:54)
[2020-10-26] MEDS: ZOSYN 3.375GM+NS 50ML 50 ML IV SCH ×2 (04:18→15:55)
[2020-10-26 05:17] LABS: HEMATOCRIT 27.5 % (36-48); MEAN CORPUSCULAR HEMOGLOBIN 28.1 pg (27.0-33.0); MEAN CORPUSCULAR HGB CONC 30.5 g/dL (32.0-36.0); RED BLOOD CELL COUNT(AUTO) 2.99 MIL/uL (4.00-5.50); RED CELL DISTRIBUTION WIDTH 16.2 % (11.0-15.5); WHITE BLOOD COUNT (AUTO) 16.7 K/uL (4.8-10.8)
[2020-10-26 05:29] LABS: CREATININE 3.2 mg/dL (0.5-1.5); POTASSIUM 3.6 mmol/L (3.5-5.1)
[2020-10-26] MEDS: INSULIN HUMULIN R 100 UNIT/ML 3ML SQ SCH ×4 (06:04→20:39)
[2020-10-26] MEDS: MIDODRINE HCL 5 MG TABLET PO SCH ×3 (09:56→21:24)
[2020-10-26] MEDS: PANTOPRAZOLE 40 MG TAB DR PO SCH (09:56)
[2020-10-26] MEDS: ASPIRIN 81MG CHEW TAB PO SCH (09:56)
[2020-10-26] MEDS: INSULIN NPH 100 UNIT/ML 3ML SQ SCH (10:51)
[2020-10-26] MEDS: ATORVASTATIN 40 MG TABLET PO SCH (21:24)
[2020-10-27] MEDS: SOLU-MEDROL 40MG VIAL IVP SCH ×4 (01:17→23:34)
[2020-10-27] MEDS: ZOSYN 3.375GM+NS 50ML 50 ML IV SCH ×2 (03:58→15:20)
[2020-10-27] MEDS: HEPARIN 5,000 UNIT VIAL SQ SCH ×2 (03:59→14:44)
[2020-10-27 04:05] VITALS: BP 112/61
[2020-10-27] MEDS: INSULIN HUMULIN R 100 UNIT/ML 3ML SQ SCH ×4 (05:46→21:07)
[2020-10-27 06:02] LABS: HEMATOCRIT 27.4 % (36-48); MEAN CORPUSCULAR HEMOGLOBIN 28.4 pg (27.0-33.0); MEAN CORPUSCULAR HGB CONC 31.8 g/dL (32.0-36.0); MEAN CORPUSCULAR VOLUME 89.5 fL (79-99); RED BLOOD CELL COUNT(AUTO) 3.06 MIL/uL (4.00-5.50); RED CELL DISTRIBUTION WIDTH 16.1 % (11.0-15.5); WHITE BLOOD COUNT (AUTO) 14.4 K/uL (4.8-10.8)
[2020-10-27 06:25] LABS: CREATININE 4.4 mg/dL (0.5-1.5); POTASSIUM 3.6 mmol/L (3.5-5.1)
[2020-10-27 08:00] VITALS: BP 117/65
[2020-10-27] MEDS: PANTOPRAZOLE 40 MG TAB DR PO SCH (08:17)
[2020-10-27] MEDS: MIDODRINE HCL 5 MG TABLET PO SCH ×3 (08:17→20:59)
[2020-10-27] MEDS: ASPIRIN 81MG CHEW TAB PO SCH (08:18)
[2020-10-27] MEDS: INSULIN NPH 100 UNIT/ML 3ML SQ SCH (09:00)
[2020-10-27 11:50] VITALS: BP 119/61
[2020-10-27 15:55] VITALS: BP 128/64
[2020-10-27 19:55] VITALS: BP 119/68
[2020-10-27] MEDS: ATORVASTATIN 40 MG TABLET PO SCH (20:59)
[2020-10-28] VITALS (7 sets, daily range): BP systolic 126–138; BP diastolic 63–85
[2020-10-28] MEDS: ZOSYN 3.375GM+NS 50ML 50 ML IV SCH (04:36)
[2020-10-28] MEDS: HEPARIN 5,000 UNIT VIAL SQ SCH ×2 (04:36→15:05)
[2020-10-28] MEDS: SOLU-MEDROL 40MG VIAL IVP SCH ×4 (04:37→20:47)
[2020-10-28] MEDS: INSULIN HUMULIN R 100 UNIT/ML 3ML SQ SCH ×4 (06:38→20:44)
[2020-10-28] MEDS: ASPIRIN 81MG CHEW TAB PO SCH (09:19)
[2020-10-28] MEDS: PANTOPRAZOLE 40 MG TAB DR PO SCH (09:19)
[2020-10-28] MEDS: MIDODRINE HCL 5 MG TABLET PO SCH ×3 (09:19→20:43)
[2020-10-28] MEDS: INSULIN NPH 100 UNIT/ML 3ML SQ SCH (09:21)
[2020-10-28] MEDS ORDERED: HEPARIN 5,000 UNIT VIAL SQ SCH (18:30)
[2020-10-28] MEDS: ATORVASTATIN 40 MG TABLET PO SCH (20:43)
== END 2020-10-29 01:00 | DRG 177 ==
LOC: EDH 12:22 → EDHIP 15:42 → 4BH 10-23 22:55
PROVIDERS: ADMIT Internal Medicine Critical Care Medicine; ATTEND Internal Medicine Critical Care Medicine
PROC: 0W993ZZ Drainage of Right Pleural Cavity, Percutaneous Approach (ICD-10-PCS; principal; 2020-10-21)
PROC: 5A1D70Z Performance of Urinary Filtration, Intermittent, Less than 6 Hours Per Day (ICD-10-PCS; 2020-10-22)
PROC: 5A1D70Z Performance of Urinary Filtration, Intermittent, Less than 6 Hours Per Day (ICD-10-PCS; 2020-10-25)
PROC: 5A1D70Z Performance of Urinary Filtration, Intermittent, Less than 6 Hours Per Day (ICD-10-PCS; 2020-10-28)
DX: U07.1 COVID-19 (principal); J96.01 Acute respiratory failure with hypoxia; N18.6 End stage renal disease; J12.82 Pneumonia due to coronavirus disease 2019; J90 Pleural effusion, not elsewhere classified; I12.0 Hypertensive chronic kidney disease with stage 5 chronic kidney disease or end stage renal disease; E78.5 Hyperlipidemia, unspecified; I25.10 Atherosclerotic heart disease of native coronary artery without angina pectoris; E11.22 Type 2 diabetes mellitus with diabetic chronic kidney disease; E66.9 Obesity, unspecified; E87.70 Fluid overload, unspecified; E11.649 Type 2 diabetes mellitus with hypoglycemia without coma; I34.0 Nonrheumatic mitral (valve) insufficiency; E87.8 Other disorders of electrolyte and fluid balance, not elsewhere classified; E04.1 Nontoxic single thyroid nodule; Z68.28 Body mass index [BMI] 28.0-28.9, adult; Z79.899 Other long term (current) drug therapy; Z99.2 Dependence on renal dialysis; Z79.4 Long term (current) use of insulin; Z79.02 Long term (current) use of antithrombotics/antiplatelets; Z79.82 Long term (current) use of aspirin; Z88.1 Allergy status to other antibiotic agents; Z86.73 Personal history of transient ischemic attack (TIA), and cerebral infarction without residual deficits
CPT/HCPCS: 32555; 36415; 36600; 71045; 80048; 80053; 82550; 82803; 82948; 83605; 83735; 83874; 83880; 84100; 84145; 84443; 84484; 85025; 85027; 85378; 85610; 85730; 86140; 87040; 87426; 90935; 93005; 99291; C1729; G0378; J0456; J0696; J1100; J1644; J1650; J1815; J2543; J2920; J2930; P9046